=== PATIENT | male | born 1995 | race Caucasian/White ===

== ENCOUNTER 2023-04-29 19:20 | Emergency (ER) | payer SELFPAY ==
[2023-04-29 19:29] VITALS: BP 124/75; PULSE 79; RESP 14; TEMP 36.7; O2SAT 98; BMI 25.1
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
[2023-04-29] MEDS: fluorescein 1 mg Strip EYE-BOTH (19:56)
[2023-04-29] MEDS: HYDROcodone-acetaminophen 5-325 mg Tablet 2 TAB PO (20:18)
[2023-04-29] MEDS: eye irrigation 30 mL Btl EYE-BOTH (20:22)
[2023-04-29 20:24] VITALS: BP 142/72; PULSE 76; RESP 14; O2SAT 97
[2023-04-29] MEDS: neomycin-poly-dex Op oint 3.5 gm 1 APPLIC EYE-BOTH (20:45)
== END 2023-04-29 20:48 | disposition home or self-care (01) ==
PROVIDERS: Emergency Provider Physician Assistant
DX: H16.133 Photokeratitis, bilateral (principal); W89.0XXA Exposure to welding light (arc), initial encounter; Y92.9 Unspecified place or not applicable
CPT/HCPCS: 99283

== ENCOUNTER → 2024-06-03 10:42 | Outpatient (BNVA) | payer SELFPAY | PROVIDERS: Visit Provider Registered Nurse Neonatal Intensive Care | DX: S99.811A Other specified injuries of right ankle, initial encounter (principal); V29.99XA Rider (driver) (passenger) of other motorcycle injured in unspecified traffic accident, initial encounter | CPT/HCPCS: 73610 ==